=== PATIENT | male | born 1980 | race Hispanic/Latino ===

== ENCOUNTER 2019-01-11 08:19 | Emergency (ER) | payer BC ==
[2019-01-11 09:44] LABS: BUN Blood Urea Nitrogen 12 mg/dL (7-18); Bicarbonate 29 mmol/L (21-32); Glucose Level 93 mg/dL (74-106); Potassium 3.7 mmol/L (3.5-5.1); Sodium Level 139 mmol/L (136-145)
--- NOTE | 2019-01-11 10:25 | RAD REPORT ---
EXAM DESCRIPTION: CT - Soft Tissue Neck W/Contr - 01/11/2019 10:00 am CLINICAL HISTORY: Neck pain with sore throat COMPARISON: None. TECHNIQUE: Computed axial tomography of the neck was obtained. 50 cc Isovue 300 was administered in travenously. Coronal and sagittal reconstruction was performed. All CT scans are performed using dose optimization technique as appropriate and may include automated exposure control or mA/KV adjustment according to patient size. FINDINGS: Several calcifications within the left tonsil may be the sequela prior inflammation. Otherwise, the pharynx, tongue base, larynx and subglottic trachea appear unremarkable The parotid, submandibular and thyroid glands appear unremarkable. No lymphadenopathy is seen The sinuses and mastoids are clear. IMPRESSION: No acute abnormality displayed
--- NOTE | 2019-01-11 10:40 | ER ---
Nurse's Notes [facility] Name: Keenan Morley Age: 38 yrs Sex: Male : 1980 Arrival Date: 01/11/2019 Time: 08:23 Bed 13 Private MD: Diagnosis: Pain in throat Presentation: 01/11 08:36 Presenting complaint: Sore throat x 2 weeks, worse yesterday. Pt was seen by PCP last hb week for same s/s, strep -, completed ZPack 4 days ago. Transition of care: patient was not received from another setting of care. Onset of symptoms was December 2018. Risk Assessment: Do you want to hurt yourself or someone else? Patient reports no desire to harm self or others. Initial Sepsis Screen: Does the patient meet any 2 criteria? No. Patient's initial sepsis screen is negative. Does the patient have a suspected source of infection? No. Patient's initial sepsis screen is negative. Care prior to arrival: None. 08:36 Method Of Arrival: Ambulatory hb 08:36 Acuity: ALEXANDER 4 hb 08:51 Acuity: ALEXANDER 3 hb Triage Assessment: 08:39 General: Appears in no apparent distress. Behavior is calm, cooperative. Pain: Pain hb currently is 6 out of 10 on a pain scale. EENT: Reports throat pain. Neuro: Level of Consciousness is awake, alert, obeys commands, Oriented to person, place, time, situation. Cardiovascular: Capillary refill < 3 seconds Patient's skin is warm and dry. Respiratory: Airway is patent Respiratory effort is even, unlabored, Respiratory pattern is regular, symmetrical. Historical: - Allergies: 08:38 No Known Allergies; hb - Home Meds: 08:38 None [Active]; hb - PMHx: 08:38 None; hb - PSHx: 08:38 None; hb - Immunization history:: Adult Immunizations up to date. - Social history:: Smoking status: Patient uses tobacco products, cigars. - Ebola Screening: : No symptoms or risks identified at this time. Screenin:40 Abuse screen: Denies threats or abuse. Denies injuries from another. Nutritional hb screening: No deficits noted. Tuberculosis screening: No symptoms or risk factors identified. Fall Risk None identified. Assessment: 08:40 General: see triage assessment. hb 09:30 Reassessment: Patient appears in no apparent distress at this time. Patient and/or hb family updated on plan of care and expected duration. Pain level reassessed. Patient is alert, oriented x 3, equal unlabored respirations, skin warm/dry/pink. 10:30 Reassessment: Patient appears in no apparent distress at this time. Patient and/or ca1 family updated on plan of care and expected duration. Pain level reassessed. Patient is alert, oriented x 3, equal unlabored respirations, skin warm/dry/pink. 11:18 Reassessment: Patient appears in no apparent distress at this time. Patient is alert, ca1 oriented x 3, equal unlabored respirations, skin warm/dry/pink. Vital Signs: 08:39 BP 146 / 91; Pulse 79; Resp 16; Temp 97.7; Pulse Ox 100% ; Weight 117.93 kg; Height 5 hb ft. 8 in. (172.72 cm); Pain 6/10; 10:30 BP 139 / 95; Pulse 86; Resp 17 S; Pulse Ox 100% on R/A; ca1 11:18 BP 132 / 93; Pulse 81; Resp 16 S; Pulse Ox 100% on R/A; ca1 08:39 Body Mass Index 39.53 (117.93 kg, 172.72 cm) hb ED Course: 08:23 Patient arrived in ED. mr 08:27 Livan Blackwell PA is PHCP. jr8 08:27 Krish Wise MD is Attending Physician. jr8 08:36 Tianna Ruffin, RN is Primary Nurse. hb 08:37 Triage completed. hb 08:39 Arm band placed on. hb 08:40 Patient has correct armband on for positive identification. Bed in low position. Call hb light in reach. Side rails up X 1. 09:00 Inserted saline lock: 22 gauge in left antecubital area, using aseptic technique. Blood hb collected. 10:04 CT Soft Tissue Neck W/contr In Process Unspecified. EDMS 10:27 Primary Nurse role handed off by Tianna Ruffin, DALJIT ca1 10:27 Preethi Yoder, DALJIT is Primary Nurse. ca1 11:18 No provider procedures requiring assistance completed. IV discontinued, intact, ca1 bleeding controlled, No redness/swelling at site. Pressure dressing applied. Administered Medications: 10:39 Not Given (Physician Discretion): ZyPREXA 5 mg PO once jr8 10:39 Not Given (Physician Discretion): Lexapro 10 mg PO once jr8 10:39 CANCELLED (Physician Discretion): hydrOXYzine 25 mg PO once jr8 Outcome: 10:39 Discharge ordered by . jami 11:18 Discharged to home ambulatory. ca1 11:18 Condition: stable 11:18 Discharge instructions given to patient, Instructed on discharge instructions, follow up and referral plans. medication usage, Demonstrated understanding of instructions, follow-up care, medications, Prescriptions given X 1. 11:19 Patient left the ED. ca1 Signatures: Dispatcher [employer] EDWA Katey Fuentes, MARIAN Licona jr8 Tianna Ruffin RN RN Preethi Yoder RN RN ca1
--- NOTE | 2019-01-11 10:41 | EDPHYS ---
Physician Documentation [facility] Name: Keenan Morley Age: 38 yrs Sex: Male : 1980 Arrival Date: 01/11/2019 Time: 08:23 Bed 13 Private MD: ED Physician Krish Wise HPI: 01/11 08:49 This 38 yrs old Male presents to ER via Ambulatory with complaints of Throat jr8 problem. 08:49 The patient presents with Pt states pain when swallowing near anterior thyroid region jr8 of neck. Onset: The symptoms/episode began/occurred 2 week(s) ago. Severity of symptoms: At their worst the symptoms were mild. Modifying factors: the symptoms are aggravated by swallowing. Associated signs and symptoms: Pertinent negatives chest pain, cough, flu-like symptoms, nausea, shortness of breath, vomiting. pt reports pain with swallowing for 2 weeks, has completed Z-pack a week ago but symptoms are persisting, states it started after sneezing. Historical: - Allergies: 08:38 No Known Allergies; hb - Home Meds: 08:38 None [Active]; hb - PMHx: 08:38 None; hb - PSHx: 08:38 None; hb - Immunization history:: Adult Immunizations up to date. - Social history:: Smoking status: Patient uses tobacco products, cigars. - Ebola Screening: : No symptoms or risks identified at this time. ROS: 08:49 Constitutional: Negative for fever, chills, and weight loss, Eyes: Negative for injury, jr8 pain, redness, and discharge, Neck: Negative for injury, pain, and swelling, Cardiovascular: Negative for chest pain, palpitations, and edema, Respiratory: Negative for shortness of breath, cough, wheezing, and pleuritic chest pain, Abdomen/GI: Negative for abdominal pain, nausea, vomiting, diarrhea, and constipation, Back: Negative for injury and pain, MS/Extremity: Negative for injury and deformity, Neuro: Negative for headache, weakness, numbness, tingling, and seizure. 08:49 ENT: Positive for throat pain. Exam: 08:51 Constitutional: This is a well developed, well nourished patient who is awake, alert, jr8 and in no acute distress. Head/Face: Normocephalic, atraumatic. Eyes: Pupils equal round and reactive to light, extra-ocular motions intact. Lids and lashes normal. Conjunctiva and sclera are non-icteric and not injected. Cornea within normal limits. Periorbital areas with no swelling, redness, or edema. ENT: Oropharynx with no redness, swelling, or masses, exudates, or evidence of obstruction, uvula midline. Mucous membranes moist. Neck: Trachea midline, no thyromegaly or masses palpated, and no cervical lymphadenopathy. Supple, full range of motion without nuchal rigidity, or vertebral point tenderness. No Meningismus. Chest/axilla: Normal chest wall appearance and motion. Nontender with no deformity. No lesions are appreciated. Cardiovascular: Regular rate and rhythm with a normal S1 and S2. No gallops, murmurs, or rubs. Normal PMI, no JVD. No pulse deficits. Respiratory: Lungs have equal breath sounds bilaterally, clear to auscultation and percussion. No rales, rhonchi or wheezes noted. No increased work of breathing, no retractions or nasal flaring. Abdomen/GI: Soft, non-tender, with normal bowel sounds. No distension or tympany. No guarding or rebound. No evidence of tenderness throughout. Back: No spinal tenderness. No costovertebral tenderness. Full range of motion. Vital Signs: 08:39 BP 146 / 91; Pulse 79; Resp 16; Temp 97.7; Pulse Ox 100% ; Weight 117.93 kg; Height 5 hb ft. 8 in. (172.72 cm); Pain 6/10; 10:30 BP 139 / 95; Pulse 86; Resp 17 S; Pulse Ox 100% on R/A; ca1 11:18 BP 132 / 93; Pulse 81; Resp 16 S; Pulse Ox 100% on R/A; ca1 08:39 Body Mass Index 39.53 (117.93 kg, 172.72 cm) hb MDM: 08:27 Patient medically screened. [facility] 10:38 Data reviewed: vital signs, nurses notes, radiologic studies, and as a result, I will jr8 discharge patient. Data interpreted: Pulse oximetry: on room air is 100 %. Interpretation: normal. Counseling: I had a detailed discussion with the patient and/or guardian regarding: the historical points, exam findings, and any diagnostic results supporting the discharge/admit diagnosis, the presence of at least one elevated blood pressure reading (>120/80) during this emergency department visit, lab results, radiology results. Special discussion: I have referred the patient to see his PCP for further evaluation of high blood pressure. 01/11 08:48 Order name: BMP; Complete Time: 09:45 8 01/11 08:48 Order name: CT Soft Tissue Neck W/contr; Complete Time: 10:36 01/11 08:48 Order name: SL; Complete Time: 09:36 Administered Medications: 10:39 Not Given (Physician Discretion): ZyPREXA 5 mg PO once 8 10:39 Not Given (Physician Discretion): Lexapro 10 mg PO once 8 10:39 CANCELLED (Physician Discretion): hydrOXYzine 25 mg PO once 8 Disposition: 01/12 09:05 Co-signature as Attending Physician, Krish Wise MD I agree with the assessment and kdr plan of care. Disposition: 01/11/19 10:39 Discharged to Home. Impression: Pain in throat. - Condition is Stable. - Discharge Instructions: Pain Without a Known Cause, Sore Throat, Sore Throat, [id number]. - Prescriptions for Medrol (Sebastian) 4 mg Oral Tablets, Dose Pack - take 1 tablet by ORAL route as directed - follow package instructions; 1 packet. - Medication Reconciliation Form, Thank You Letter form. - Follow up: Private Physician; When: 2 - 3 days; Reason: Recheck today's complaints, Re-evaluation by your physician. - Problem is new. - Symptoms are unchanged. Signatures: Dispatcher [employer] EDOR Krish Wise MD MD kdr Roszak, Josh, PA PA jr8 Tianna Ruffin, DALJIT RN Preethi Yoder RN RN ca1 Corrections: (The following items were deleted from the chart) 01/11 10:39 10:39 hydrOXYzine 25 mg PO once ordered. 8 11:19 10:39 01/11/2019 10:39 Discharged to Home. Impression: Pain in throat. Condition is ca1 Stable. Forms are Medication Reconciliation Form, Thank You Letter, Antibiotic Education, Prescription Opioid Use. Follow up: Private Physician; When: 2 - 3 days; Reason: Recheck today's complaints, Re-evaluation by your physician. Problem is new. Symptoms are unchanged. jr8
[2019-01-11 11:28] VITALS: TEMP 97.7; O2SAT 100
[2019-01-11 11:31] VITALS: BP 132/93
== END 2019-01-11 11:19 | disposition home or self-care (01) ==
LOC: ER 08:19
DX: R07.0 Pain in throat (principal); Z72.0 Tobacco use
CPT/HCPCS: 80048; 36415; 70491; 99284; Q9967

== ENCOUNTER 2020-10-20 11:00 | Emergency (ER) | payer BC ==
[2020-10-20 13:03] LABS: Urine Blood 1+ (Negative); Urine Glucose Negative (Negative); Urine Protein Negative (Negative); Urine Specific Gravity 1.025 (1.005-1.030)
[2020-10-20] MEDS ORDERED: NA CHLORIDE 0.9% 1,000 ML ONE (13:09)
[2020-10-20 13:10] LABS: Absolute Lymphocytes (CBC) 2.5 K/uL (0.7-4.9); Basophils % 0.9 % (0-1.3); Hematocrit 44.6 % (39.6-49.0); Lymphocytes % 21.7 % (15.3-44.8); MPV 8.8 fL (7.6-11.3)
[2020-10-20 13:12] LABS: Urine Bacteria <20 /HPF (NONE SEEN); Urine Mucus LIGHT /HPF (NONE SEEN); Urine RBC <5 /HPF (NONE SEEN)
--- NOTE | 2020-10-20 13:23 | RAD REPORT ---
EXAM DESCRIPTION: CTAbdomen Pelvis W Contrast - 10/20/2020 1:16 pm CLINICAL HISTORY: Abdominal pain. ABD PAIN COMPARISON: No comparisons TECHNIQUE: Biphasic CT imaging of the abdomen and pelvis was performed with 100 ml non-ionic IV cont rast. All CT scans are performed using dose optimization technique as appropriate and may include automated exposure control or mA/KV adjustment according to patient size. FINDINGS: The lung bases are clear. The liver, spleen, pancreas, adrenal glands and kidneys are within normal limits. Inflammatory changes along the proximal sigmoid colon consistent with diverticulitis but no perforati on or abscess. Small fat containing inguinal hernias. The appendix is normal. No evidence of signifi cant lymphadenopathy. No suspicious bony findings. IMPRESSION: Non perforated sigmoid diverticulitis.
[2020-10-20 13:30] LABS: Albumin 4.5 g/dL (3.4-5.0); Bilirubin Direct 0.1 mg/dL (0-0.2); Bilirubin Total 0.7 mg/dL (0.2-1.0)
--- NOTE | 2020-10-20 13:36 | ER ---
Nurse's Notes [facility] Name: Keenan Morley Age: 39 yrs Sex: Male : 1980 Arrival Date: 10/20/2020 Time: 11:07 Bed 25 Private MD: Diagnosis: Diverticulitis of large intestine without perforation or abscess without bleeding Presentation: 10/20 12:21 Chief complaint: Patient states: LLQ abdominal pain starting today. Worse with BM. kg Coronavirus screen: Client denies travel out of the [place] in the last 14 days. At this time, unable to obtain information related to travel outside the [place] At this time, the client does not indicate any symptoms associated with coronavirus-19. Ebola Screen: Patient negative for fever greater than or equal to 101.5 degrees Fahrenheit, and additional compatible Ebola Virus Disease symptoms Patient denies exposure to infectious person. Patient denies travel to an Ebola-affected area in the 21 days before illness onset. Initial Sepsis Screen: Does the patient meet any 2 criteria? No. Patient's initial sepsis screen is negative. Does the patient have a suspected source of infection? No. Patient's initial sepsis screen is negative. Risk Assessment: Do you want to hurt yourself or someone else? Patient reports no desire to harm self or others. Onset of symptoms was October 20, 2020. 12:21 Method Of Arrival: Ambulatory kg 12:21 Acuity: ALEXANDER 3 kg Historical: - Allergies: 12:22 No Known Allergies; kg - Home Meds: 12:22 None [Active]; kg - PMHx: 12:22 None; kg - Immunization history:: Adult Immunizations up to date. - Social history:: Smoking status: unknown. Screenin:15 Abuse screen: Denies threats or abuse. Denies injuries from another. Nutritional zb screening: No deficits noted. Tuberculosis screening: No symptoms or risk factors identified. Fall Risk None identified. Assessment: 13:13 General: Appears uncomfortable, Behavior is calm, cooperative, appropriate for age. zb Pain: Complains of pain in left lower quadrant Pain does not radiate. Pain currently is 7 out of 10 on a pain scale. Quality of pain is described as aching, pressure, Pain began today Is continuous, Alleviated by nothing. Noted to be grimacing, guarding, moaning. Neuro: Level of Consciousness is awake, alert, obeys commands, Oriented to person, place, time, situation. Cardiovascular: Patient's skin is warm and dry. Respiratory: Airway is patent Respiratory effort is even, unlabored, Respiratory pattern is regular, symmetrical. GI: Abdomen is round Reports lower abdominal pain, Patient currently denies diarrhea, nausea, pain, vomiting. : Urine is clear, Last void was October 20, 2020. Derm: Skin is intact, is healthy with good turgor, Skin is dry, Skin is normal, Skin temperature is warm. Musculoskeletal: Range of motion: intact in all extremities. 14:15 Reassessment: Patient appears in no apparent distress at this time. Patient and/or zb family updated on plan of care and expected duration. Pain level reassessed. Patient is alert, oriented x 3, equal unlabored respirations, skin warm/dry/pink. d/c pending completion of IV medication and fluids. 14:49 Reassessment: fluid completed patient ambulated out. gait even and steady. zb Vital Signs: 12:21 BP 129 / 78; Pulse 78; Resp 20; Temp 97.1(TE); Pulse Ox 99% on R/A; Weight 111.13 kg kg (R); Height 5 ft. 8 in. (172.72 cm); Pain 5/10; 14:15 BP 129 / 78; Pulse 76; Resp 16; Pulse Ox 100% on R/A; zb 12:21 Body Mass Index 37.25 (111.13 kg, 172.72 cm) kg ED Course: 11:07 Patient arrived in ED. ds1 12:10 Ori Mullins NP is PHCP. pm1 12:10 Lamin Quintero MD is Attending Physician. pm1 12:22 Triage completed. kg 12:27 Isabel Torres, DALJIT is Primary Nurse. zb 13:15 CT Abd/Pelvis - IV Contrast Only In Process Unspecified. EDMS 13:15 Initial lab(s) drawn, by me, sent to lab. Urine collected: clean catch specimen, umu zb colored. Inserted saline lock: 20 gauge in left antecubital area, using aseptic technique. Blood collected. 13:16 Arm band placed on. zb 13:16 Patient has correct armband on for positive identification. Pulse ox on. NIBP on. zb 14:49 No provider procedures requiring assistance completed. IV discontinued, intact, zb bleeding controlled, No redness/swelling at site. Pressure dressing applied. Administered Medications: 13:13 Drug: NS 0.9% 1000 ml Route: IV; Rate: 1000 ml; Site: left antecubital; zb 14:45 Follow up: Response: No adverse reaction; IV Status: Completed infusion; IV Intake: zb 1000ml 14:14 Drug: Flagyl (metroNIDAZOLE) 500 mg Volume: 100 ml; Route: IVPB; Rate: 200 ml/hr; zb Infused Over: 30 mins; Site: left antecubital; 14:45 Follow up: Response: No adverse reaction; IV Status: Completed infusion; IV Intake: zb 100ml 14:15 Drug: Cipro (ciprofloxacin) 500 mg Route: PO; zb 14:45 Follow up: Response: No adverse reaction zb 14:15 Drug: Bentyl (dicyclomine) 20 mg Route: PO; zb 14:45 Follow up: Response: No adverse reaction zb Intake: 14:45 IV: 1000ml; Total: 1000ml. zb 14:45 IV: 100ml; Total: 1100ml. zb Outcome: 13:36 Discharge ordered by MD. pm1 14:49 Discharged to home ambulatory. zb 14:49 Condition: stable 14:49 Discharge instructions given to patient, Instructed on discharge instructions, follow up and referral plans. medication usage, Demonstrated understanding of instructions, follow-up care, medications, Prescriptions given X 3. 14:49 Patient left the ED. zb Signatures: Dispatcher [employer] EDCO Tarsha Loza dsOri Rae NP SQE pm1 Isabel Torres RN RN zb Cassie Buckner RN RN kg
--- NOTE | 2020-10-20 13:37 | EDPHYS ---
Physician Documentation [facility] Name: Keenan Morley Age: 39 yrs Sex: Male : 1980 Arrival Date: 10/20/2020 Time: 11:07 Bed 25 Private MD: ED Physician Lamin Quintero HPI: 10/20 12:27 This 39 yrs old Male presents to ER via Ambulatory with complaints of pm1 Abdominal Pain. 12:27 The patient presents with abdominal pain in the left lower quadrant. Onset: The pm1 symptoms/episode began/occurred today. The symptoms do not radiate. Associated signs and symptoms: Pertinent negatives: nausea, vomiting, and diarrhea, chest pain, constipation, dysuria, fever, shortness of breath. The symptoms are described as achy. Modifying factors: the symptoms are aggravated by bowel movement and straining. Severity of pain: in the emergency department the pain is actually worse is a 5 / 10. The patient has not experienced similar symptoms in the past. The patient has not recently seen a physician. Historical: - Allergies: 12:22 No Known Allergies; kg - Home Meds: 12:22 None [Active]; kg - PMHx: 12:22 None; kg - Immunization history:: Adult Immunizations up to date. - Social history:: Smoking status: unknown. ROS: 12:27 Constitutional: Negative for fever, chills, and weight loss, Cardiovascular: Negative pm1 for chest pain, palpitations, and edema, Respiratory: Negative for shortness of breath, cough, wheezing, and pleuritic chest pain. 12:27 Back: Negative for injury and pain, MS/Extremity: Negative for injury and deformity, Skin: Negative for injury, rash, and discoloration, Neuro: Negative for headache, weakness, numbness, tingling, and seizure. 12:27 : Negative for injury, bleeding, discharge, and swelling, pain with urination 12:27 Abdomen/GI: Positive for abdominal pain, of the left lower quadrant, Bowel movement this morning, Negative for nausea, vomiting, and diarrhea, constipation. 12:27 All other systems are negative. pm1 Exam: 12:27 Constitutional: This is a well developed, well nourished patient who is awake, alert, pm1 and in no acute distress. Head/Face: Normocephalic, atraumatic. 12:27 Skin: Warm, dry with normal turgor. Normal color with no rashes, no lesions, and no evidence of cellulitis. MS/ Extremity: Pulses equal, no cyanosis. Neurovascular intact. Full, normal range of motion. 12:27 Cardiovascular: Exam negative for acute changes, Rate: normal, Rhythm: regular, Pulses: no pulse deficits are appreciated. 12:27 Respiratory: Exam negative for acute changes, respiratory distress, shortness of breath. 12:27 Abdomen/GI: Inspection: abdomen appears normal, Palpation: soft, in all quadrants, mild abdominal tenderness, in the left lower quadrant. 12:27 Back: Exam negative for acute changes, pain, is absent, CVA tenderness, is absent, vertebral tenderness, is not appreciated. 12:27 Neuro: Exam negative for acute changes, Orientation: is normal, Motor: is normal, moves all fours. Vital Signs: 12:21 BP 129 / 78; Pulse 78; Resp 20; Temp 97.1(TE); Pulse Ox 99% on R/A; Weight 111.13 kg kg (R); Height 5 ft. 8 in. (172.72 cm); Pain 5/10; 14:15 BP 129 / 78; Pulse 76; Resp 16; Pulse Ox 100% on R/A; zb 12:21 Body Mass Index 37.25 (111.13 kg, 172.72 cm) kg MDM: 12:20 Patient medically screened. pm1 12:27 Data reviewed: vital signs. Data interpreted: Pulse oximetry: on room air is 99 %. pm1 Interpretation: normal. 12:27 ED course: Patient reports pain 5 out of 10. Patient refused pain medications offered pm1 in the ER. 13:31 Counseling: I had a detailed discussion with the patient and/or guardian regarding: the pm1 historical points, exam findings, and any diagnostic results supporting the discharge/admit diagnosis, lab results, radiology results, the need for outpatient follow up, a planning official, colonoscopy post resolution of diverticulitis. Patient educated on return precautions, to return to the emergency department if symptoms worsen or persist or if there are any questions or concerns that arise at home. 10/20 12:26 Order name: Basic Metabolic Panel; Complete Time: 13:41 pm1 10/20 12:26 Order name: CBC with Diff; Complete Time: 13:20 pm1 10/20 12:26 Order name: Hepatic Function; Complete Time: 13:41 pm1 10/20 12:26 Order name: Lipase; Complete Time: 13:41 pm1 10/20 12:26 Order name: Urine Microscopic Only; Complete Time: 13:20 pm1 10/20 13:03 Order name: Urine Dipstick-Ancillary; Complete Time: 13:07 EDMS 10/20 12:26 Order name: IV Saline Lock; Complete Time: 13:13 pm1 10/20 12:26 Order name: Labs collected and sent; Complete Time: 13:13 pm1 10/20 12:26 Order name: Urine Dipstick-Ancillary (obtain specimen); Complete Time: 13:16 pm1 10/20 12:26 Order name: CT Abd/Pelvis - IV Contrast Only; Complete Time: 13:24 pm1 Administered Medications: 13:13 Drug: NS 0.9% 1000 ml Route: IV; Rate: 1000 ml; Site: left antecubital; zb 14:45 Follow up: Response: No adverse reaction; IV Status: Completed infusion; IV Intake: zb 1000ml 14:14 Drug: Flagyl (metroNIDAZOLE) 500 mg Volume: 100 ml; Route: IVPB; Rate: 200 ml/hr; zb Infused Over: 30 mins; Site: left antecubital; 14:45 Follow up: Response: No adverse reaction; IV Status: Completed infusion; IV Intake: zb 100ml 14:15 Drug: Cipro (ciprofloxacin) 500 mg Route: PO; zb 14:45 Follow up: Response: No adverse reaction zb 14:15 Drug: Bentyl (dicyclomine) 20 mg Route: PO; zb 14:45 Follow up: Response: No adverse reaction zb Disposition: 13:39 Co-signature as Attending Physician, Lamin Quintero MD I agree with the assessment and rn plan of care. PA/DIABETES EDUCATOR's history reviewed, patient interviewed, and examined. HPI: Patient reports left lower quadrant abdominal pain that began this morning. No vomiting or diarrhea My personal exam of patient reveals: Mild left lower quadrant tenderness, no peritoneal signs no swelling I agree with assessment and care plan and confirm the diagnosis (es) above. Disposition Summary: 10/20/20 13:36 Discharge Ordered Location: Home pm1 Problem: new pm1 Symptoms: have improved pm1 Condition: Stable pm1 Diagnosis - Diverticulitis of large intestine without perforation or abscess without bleeding pm1 Followup: pm1 - With: Emergency Department - When: As needed - Reason: Worsening of condition Followup: pm1 - With: Private Physician - When: 2 - 3 days - Reason: Recheck today's complaints, Continuance of care, Re-evaluation by your physician Discharge Instructions: - Discharge Summary Sheet pm1 - Clear Liquid Diet, Adult pm1 - Diverticulitis pm1 Forms: - Medication Reconciliation Form pm1 - Thank You Letter pm1 - Antibiotic Education pm1 - Prescription Opioid Use pm1 Prescriptions: - Flagyl 500 mg Oral Tablet - take 1 tablet by ORAL route every 6 hours for 10 days; 40 tablet; Refills: 0, pm1 Product Selection Permitted - Cipro 500 mg Oral Tablet - take 1 tablet by ORAL route every 12 hours for 10 days; 20 tablet; Refills: 0, pm1 Product Selection Permitted - dicyclomine 20 mg Oral Tablet - take 1 tablet by ORAL route every 6 hours As needed; 20 tablet; Refills: 0, pm1 Product Selection Permitted Signatures: Dispatcher [employer] EDLamin Zarco MD MD rn Marinas, Patrick, NP DIABETES EDUCATOR pm1 Isabel Torres RN RN Cassie Carrillo RN RN kg
[2020-10-20] MEDS ORDERED: METRONIDAZOLE 500mg IVPB 500 MG/100 ML BAG IV ONE (14:31)
[2020-10-20] MEDS ORDERED: CIPROFLOXACIN HCL 500 MG TAB ONE (14:31)
[2020-10-20] MEDS ORDERED: DICYCLOMINE HCL 10 MG CAP ONE (14:31)
[2020-10-20 15:28] VITALS: BP 129/78; TEMP 97.1
[2020-10-20 15:37] VITALS: O2SAT 100
== END 2020-10-20 14:49 | disposition home or self-care (01) ==
LOC: ER 11:00
DX: K57.32 Diverticulitis of large intestine without perforation or abscess without bleeding (principal)
CPT/HCPCS: 96365; 96361; 85025; 80048; 36415; 82565; 80076; 83690; 74177; 99284; Q9967; J7030; 81003; 81015